=== PATIENT | male | born 1980 | race Caucasian/White ===

== ENCOUNTER 2024-05-20 11:56 | Observation (INO) | payer BC ==
[2024-05-20] MEDS ORDERED: Sodium Chloride 0.9% 1000 ML 1,000 ML ONE ×2 (12:24→13:12)
[2024-05-20] MEDS ORDERED: Zofran 4 MG/2 ML VIAL ONE (12:24)
[2024-05-20 12:25] LABS: Absolute Neutrophil Ct (ANC) 17.52 x10^3/uL (1.78-5.38); BASOPHIL % 0.3 % (0.2-1.2); Basophil (Absolute #) 0.06 x10^3/uL (0.01-0.08); Eosinophil % 0.1 % (0.8-7.0); Eosinophil (Absolute #) 0.01 x10^3/uL (0.04-0.54); Hematocrit 58.3 % (40.1-51.0); Hemoglobin 19.9 g/dL (13.7-17.5); IMMATURE GRAN # 0.07 x10^3u/L (0.001-0.031); IMMATURE GRAN % 0.4 % (0.001-0.429); Lymphocyte (Absolute #) 0.38 x10^3/uL (1.32-3.57); Mean Cell Volume 91.5 fL (79.0-92.2); Mean Corpuscular Hemoglobin 31.2 pg (25.7-32.2); Mean Corpuscular Hgb Concent. 34.1 g/dL (32.3-36.5); Mean Platelet Volume 9.5 fL (9.4-12.4); Monocyte (Absolute #) 0.73 x10^3/uL (0.30-0.82); Monocytes % 3.9 % (5.3-12.2); Neutrophil % 93.3 % (34.0-67.9); Platelet Count 290 x10^3/uL (163-337); Red Blood Count 6.37 x10^6/uL (4.63-6.08); Red Cell Distribution Width 13.5 % (11.6-14.4); White Blood Count 18.8 x10^3/uL (4.23-9.07)
[2024-05-20] MEDS: Zofran 4 MG/2 ML VIAL IV ONE (12:25)
[2024-05-20] MEDS: Sodium Chloride 0.9% 1000 ML 1,000 ML IV STA ×2 (12:25→13:13)
--- NOTE | 2024-05-20 12:34 | ERPHSYRPT ---
- History of Present Illness Time Seen by Provider: 05/20/24 12:20 Source: patient Exam Limitations: no limitations Patient Subjective Stated Complaint: PT states "[facility] and they think I might have dka and I went to lab and they could not get my blood because I am so dehydrated. I have vomited since 4 am." Triage Nursing Assessment: Pt presented alert and oriented X 3, skin pwd. Pt ambulates with an upright steady gait, able to speak in clear full sentences. PT resting comfortably on the bed. Timing/Duration: today Severity: mild Modifying Factors: Improves With: eating Associated Symptoms: nausea, vomiting Allergies/Adverse Reactions: No Known Drug Allergies Allergy (Verified 05/20/24 12:06) Home Medications: Empagliflozin [Jardiance] 25 mg PO DAILY 05/20/24 [History] Glimepiride 2 mg [Amaryl 2 MG] 2 mg PO DAILY 05/20/24 [History] Metformin HCl [Metformin HCl ER] 500 mg PO DAILY 05/20/24 [History] Hx Tetanus, Diphtheria Vaccination/Date Given: No Hx Influenza Vaccination/Date Given: No Hx Pneumococcal Vaccination/Date Given: No Immunizations Up to Date: No Travel Risk - International Travel Have you traveled outside of the country in past 3 weeks: No - Emerging Infectious Disease Are you exhibiting symptoms associated with any current EIDs: Yes Symptoms: Abdominal Pain, Vomitting - Review of Systems Eyes: No Symptoms Ears, Nose, & Throat: No Symptoms Respiratory: No Symptoms Cardiac: No Symptoms Abdominal/Gastrointestinal: Nausea, Vomiting Genitourinary Symptoms: No Symptoms Musculoskeletal: No Symptoms - Past Medical History Pertinent Past Medical History: Yes Neurological History: No Pertinent History ENT History: No Pertinent History Cardiac History: No Pertinent History, High Cholesterol Respiratory History: No Pertinent History Endocrine Medical History: Diabetes Type II Musculoskeletal History: No Pertinent History Other Medical History: nerve pain - Past Surgical History Past Surgical History: Yes Other Surgical History: colon resection - Social History Smoking Status: Former smoker Exposure to second hand smoke: No Drug Use: none - Social Determinants of Health Will the patient participate in the screening: Declined to provide - Nursing Vital Signs Nursing Vital Signs: Initial Vital Signs Temperature 95.5 F 05/20/24 12:01 Pulse Rate 107 H 05/20/24 12:01 Respiratory Rate 20 05/20/24 12:01 Blood Pressure 122/86 05/20/24 12:01 O2 Sat by Pulse Oximetry 98 05/20/24 12:01 Pain Scale Pain Intensity 0 - Physical Exam General Appearance: no apparent distress Eye Exam: PERRL/EOMI Ears, Nose, Throat Exam: normal ENT inspection Neck Exam: normal inspection Respiratory Exam: normal breath sounds Cardiovascular Exam: regular rate/rhythm Gastrointestinal/Abdomen Exam: soft, normal bowel sounds Neurologic Exam: alert, oriented x 3 Skin Exam: normal color SpO2 Interpretation: normal SpO2: 98 Ordered Tests: Active Orders 24 hr Category Date Time Status IV Insertion STAT Care 05/20/24 12:10 Active ABDOMEN AND PELVIS W CONTRAST [CT] Stat Exams 05/20/24 12:39 Completed AMYLASE Stat Lab 05/20/24 12:05 Completed CBC W DIFF Stat Lab 05/20/24 12:05 Completed CMP Stat Lab 05/20/24 12:05 Completed LIPASE Stat Lab 05/20/24 12:05 Completed Lactic Acid Stat Lab 05/20/24 12:26 Completed Lactic Acid Stat Lab 05/20/24 14:29 Completed UA W/RFX UR CULTURE Stat Lab 05/20/24 13:22 Completed Transfer Order Routine Transfer 05/20/24 Ordered Medication Summary Discontinued Medications Generic Name Dose Route Start Last Admin Trade Name Freq PRN Reason Stop Dose Admin Droperidol 0.625 mg 05/20/24 16:16 05/20/24 16:20 Droperidol 5 Mg/2 Ml Vial IV 05/20/24 16:17 0.625 mg 1XONLY ONE Administration Droperidol Confirm 05/20/24 16:19 Droperidol 5 Mg/2 Ml Vial Administered 05/20/24 16:20 Dose 5 mg .ROUTE .STK-MED ONE Sodium Chloride 1,000 mls @ 999 mls/hr 05/20/24 12:22 05/20/24 13:32 Sodium Chloride 0.9% 1000 Ml IV 05/20/24 13:22 Infused .Q1H1M STA Infusion Sodium Chloride 1,000 mls @ 999 mls/hr 05/20/24 12:23 05/20/24 14:51 Sodium Chloride 0.9% 1000 Ml IV 05/20/24 13:23 Infused .Q1H1M STA Infusion Sodium Chloride Confirm 05/20/24 12:24 Sodium Chloride 0.9% 1000 Ml Administered 05/20/24 12:25 Dose 1,000 mls @ ud .ROUTE .STK-MED ONE Sodium Chloride Confirm 05/20/24 13:12 Sodium Chloride 0.9% 1000 Ml Administered 05/20/24 13:13 Dose 1,000 mls @ ud .ROUTE .STK-MED ONE Ondansetron HCl 4 mg 05/20/24 12:23 05/20/24 12:25 Ondansetron Hcl 4 Mg/2 Ml Vial IV 05/20/24 12:24 4 mg STAT ONE Administration Ondansetron HCl Confirm 05/20/24 12:24 Ondansetron Hcl 4 Mg/2 Ml Vial Administered 05/20/24 12:25 Dose 4 mg .ROUTE .STK-MED ONE Lab/Rad Data: Laboratory Result Diagrams 05/20/24 12:05 05/20/24 12:05 Laboratory Results 05/20/24 05/20/24 05/20/24 Range/Units 14:29 13:22 12:26 WBC (4.23-9.07) x10^3/uL RBC (4.63-6.08) x10^6/uL Hgb (13.7-17.5) g/dL Hct (40.1-51.0) % MCV (79.0-92.2) fL MCH (25.7-32.2) pg MCHC (32.3-36.5) g/dL RDW (11.6-14.4) % Plt Count (163-337) x10^3/uL MPV (9.4-12.4) fL Gran % (34.0-67.9) % Immature Gran % (Auto) (0.001-0.429) % Nucleat RBC Rel Count (0.00-0.2) % Eos # (Auto) (0.04-0.54) x10^3/uL Immature Gran # (Auto) (0.001-0.031) x10^3u/L Absolute Lymphs (auto) (1.32-3.57) x10^3/uL Absolute Monos (auto) (0.30-0.82) x10^3/uL Absolute Nucleated RBC (0.00-0.012) x10^3u/L Lymphocytes % (21.8-53.1) % Monocytes % (5.3-12.2) % Eosinophils % (0.8-7.0) % Basophils % (0.2-1.2) % Absolute Granulocytes (1.78-5.38) x10^3/uL Basophils # (0.01-0.08) x10^3/uL Sodium (135-145) mmol/L Potassium (3.5-5.1) mmol/L Chloride (98-107) mmol/L Carbon Dioxide (22-30) mmol/L Anion Gap (5-15) MEQ/L BUN (9-20) mg/dL Creatinine (0.66-1.25) mg/dL Estimated GFR ML/MIN Glucose (74-106) mg/dL Lactic Acid 1.4 2.9 H (0.4-2.0) Calcium (8.4-10.2) mg/dL Total Bilirubin (0.2-1.3) mg/dL AST (17-59) U/L ALT (0-50) U/L Alkaline Phosphatase (38-126) U/L Serum Total Protein (6.3-8.2) g/dL Albumin (3.5-5.0) g/dL Amylase (30-110) U/L Lipase (23-300) U/L Urine Color Yellow (Yellow) Urine Appearance Clear (Clear) Urine pH 5.0 (4.6-8.0) Ur Specific [place] >=1.030 A (1.005-1.030) Urine Protein Negative (Negative) Urine Glucose (UA) >=1000 A (Negative) mg/dL Urine Ketones 15 A (Negative) Urine Blood Trace (Negative) Urine Nitrite Negative (Negative) Urine Bilirubin Negative (Negative) Urine Urobilinogen 0.2 (0.2) mg/dL Ur Leukocyte Esterase Negative (Negative) U Hyaline Cast (Auto) NONE SEEN (0-2) /LPF Urine Microscopic RBC 0-2 (0-5) /HPF Urine Microscopic WBC 0-2 (0-5) /HPF Ur Epithelial Cells None Seen (None Seen) /HPF Urine Bacteria None Seen (None Seen) /HPF Urine Culture Reflexed NO (NO) Influenza Type A Ag (NEGATIVE) Influenza Type B Ag (NEGATIVE) RSV (PCR) (NEGATIVE) SARS-CoV-2 (PCR) (NEGATIVE) Slides for Path Review 05/20/24 05/20/24 05/20/24 Range/Units 12:25 12:05 12:05 WBC 18.8 H (4.23-9.07) x10^3/uL RBC 6.37 H (4.63-6.08) x10^6/uL Hgb 19.9 H (13.7-17.5) g/dL Hct 58.3 H (40.1-51.0) % MCV 91.5 (79.0-92.2) fL MCH 31.2 (25.7-32.2) pg MCHC 34.1 (32.3-36.5) g/dL RDW 13.5 (11.6-14.4) % Plt Count 290 (163-337) x10^3/uL MPV 9.5 (9.4-12.4) fL Gran % 93.3 H (34.0-67.9) % Immature Gran % (Auto) 0.4 (0.001-0.429) % Nucleat RBC Rel Count 0.0 (0.00-0.2) % Eos # (Auto) 0.01 L (0.04-0.54) x10^3/uL Immature Gran # (Auto) 0.07 H (0.001-0.031) x10^3u/L Absolute Lymphs (auto) 0.38 L (1.32-3.57) x10^3/uL Absolute Monos (auto) 0.73 (0.30-0.82) x10^3/uL Absolute Nucleated RBC 0.00 (0.00-0.012) x10^3u/L Lymphocytes % 2.0 L (21.8-53.1) % Monocytes % 3.9 L (5.3-12.2) % Eosinophils % 0.1 L (0.8-7.0) % Basophils % 0.3 (0.2-1.2) % Absolute Granulocytes 17.52 H (1.78-5.38) x10^3/uL Basophils # 0.06 (0.01-0.08) x10^3/uL Sodium 139 (135-145) mmol/L Potassium 4.4 (3.5-5.1) mmol/L Chloride 100 (98-107) mmol/L Carbon Dioxide 26 (22-30) mmol/L Anion Gap 17.3 H (5-15) MEQ/L BUN 19 (9-20) mg/dL Creatinine 1.28 H (0.66-1.25) mg/dL Estimated GFR 72.1 ML/MIN Glucose 245 H (74-106) mg/dL Lactic Acid (0.4-2.0) Calcium 9.7 (8.4-10.2) mg/dL Total Bilirubin 1.60 H (0.2-1.3) mg/dL AST 37 (17-59) U/L ALT 73 H (0-50) U/L Alkaline Phosphatase 91 (38-126) U/L Serum Total Protein 8.5 H (6.3-8.2) g/dL Albumin 5.1 H (3.5-5.0) g/dL Amylase 86 (30-110) U/L Lipase 45 (23-300) U/L Urine Color (Yellow) Urine Appearance (Clear) Urine pH (4.6-8.0) Ur Specific [place] (1.005-1.030) Urine Protein (Negative) Urine Glucose (UA) (Negative) mg/dL Urine Ketones (Negative) Urine Blood (Negative) Urine Nitrite (Negative) Urine Bilirubin (Negative) Urine Urobilinogen (0.2) mg/dL Ur Leukocyte Esterase (Negative) U Hyaline Cast (Auto) (0-2) /LPF Urine Microscopic RBC (0-5) /HPF Urine Microscopic WBC (0-5) /HPF Ur Epithelial Cells (None Seen) /HPF Urine Bacteria (None Seen) /HPF Urine Culture Reflexed (NO) Influenza Type A Ag NEGATIVE (NEGATIVE) Influenza Type B Ag NEGATIVE (NEGATIVE) RSV (PCR) NEGATIVE (NEGATIVE) SARS-CoV-2 (PCR) NEGATIVE (NEGATIVE) Slides for Path Review YES - Progress Progress Note: 05/20/24 16:39Patient was seen and evaluated for abdominal pain nausea and vomiting labs and CT were obtained. Patient was updated with the results however he is still having nausea and does not want to go home he would prefer to be admitted. I spoke to the hospitalist will admit the patient he was updated with the patient's current labs and CT results Medical Desision Making - Discussion of managment Care discussed with:: hospitalist Reviewed:: Need for additional workup Agreed on:: decision to admit Will see patient: in hospital - Departure Departure Disposition: Observation Clinical Impression: Nausea & vomiting, Dehydration, Renal insufficiency, Diabetes Condition: Stable Critical Care Time: No Referrals: PIPER ARROYO MD [Primary Care Provider] - Follow up/PCP as directed
[2024-05-20 12:37] LABS: ALBUMIN 5.1 g/dL (3.5-5.0); ANION GAP 17.3 MEQ/L (5-15); BILIRUBIN,TOTAL 1.6 mg/dL (0.2-1.3); Calcium 9.7 mg/dL (8.4-10.2); Creatinine 1 1.28 mg/dL (0.66-1.25); EST GLOMERULAR FILTRATION RATE 72.1 ML/MIN; Potassium 4.4 mmol/L (3.5-5.1); Total Protein 8.5 g/dL (6.3-8.2)
[2024-05-20 13:03] LABS: INFLUENZA A NEGATIVE (NEGATIVE); INFLUENZA B NEGATIVE (NEGATIVE); RESPIRATORY SYNCTIAL VIRUS NEGATIVE (NEGATIVE); SARS-CoV-2 Xpert Express NEGATIVE (NEGATIVE)
[2024-05-20 14:03] LABS: Appearance Clear (Clear); Bacteria None Seen /HPF (None Seen); Bilirubin Negative (Negative); Blood Trace (Negative); Epithelial Cells None Seen /HPF (None Seen); Glucose, Urine >=1000 mg/dL (Negative); Hyaline Casts NONE SEEN /LPF (0-2); Ketones 15 (Negative); Leukocyte Esterase Negative (Negative); Nitrite Negative (Negative); Protein,Urine Dip Negative (Negative); RBC 0-2 /HPF (0-5); Specific Gravity >=1.030 (1.005-1.030); Urobilinogen 0.2 mg/dL (0.2); WBC 0-2 /HPF (0-5)
[2024-05-20 14:05] LABS: Slide Review 1 YES
--- NOTE | 2024-05-20 14:42 | XRAY ---
Indication: Pain. History diverticulitis. Multiple contiguous axial images obtained through the abdomen and pelvis using 80 cc Isovue 370 contrast. Comparison: None Lung bases demonstrates minimal dependent atelectasis and tiny right middle lobe calcified granulomas. No infiltrate or effusion. Heart not enlarged. Stomach is moderately distended with food/fluid. Noncontrasted stomach and bowel loops appear nonobstructed. Mild uniformly fluid distended small bowel loops with fluid leveling, ileus versus enteritis. Normal appendix. Mild diffuse scattered colonic fecal debris. Intact sigmoid anastomosis. Incidental diffuse fatty liver and 1 cm right mid renal cortical cyst. No free fluid/air. Remaining liver, gallbladder, pancreas, spleen, adrenal glands, kidneys, ureters, bladder, and aorta are unremarkable. No pathologic retroperitoneal lymphadenopathy. Osseous structures intact with minimal/mild degenerative changes throughout spine greatest at L5-S1. Impression: 1. Mild fluid distended small bowel loops with fluid leveling, ileus versus enteritis. 2. Mild diffuse colonic fecal stasis. 3. Chronic findings including fatty liver, right renal cyst, degenerative spondylosis, and old granulomatous disease.
[2024-05-20] MEDS ORDERED: TESTOSTERONE CYPIONATE 200 MG/ML IM SCH (17:30)
[2024-05-20] MEDS ORDERED: HUMALOG SQ PRN (17:30)
--- NOTE | 2024-05-20 17:33 | PCM.HP ---
History of Present Illness - Chief Complaint Chief Complaint: vomiting, dehydration Date: 05/20/24 History of Present Illness: is a 43 year old male with PMHX of hyperlipidemia, type II DM, diverticulitis, colon resection, and chronic obesity. Patient was seen in [facility] [place] care then sent to ER and evaluated for abdominal pain, nausea, and vomiting. Labs and CT were obtained. Pt gave the option to go home from ER and still having nausea and did not want to go home he would preferred to be admitted. Labs show MADELIN, and dehydration. 2 Liters NS gave IV in ER and IVF started at 100ml/hr. Nausea meds also provided. CT abd. pelvis shows Mild fluid distended small bowel loops with fluid leveling, ileus versus enteritis. Mild diffuse colonic fecal stasis.Chronic findings including fatty liver, right renal cyst, degenerative spondylosis, and old granulomatous disease. Pt states he had a BM in the ER prior to CT. Explained he is constipated and MIralax ordered. If abd pain does not improve by tomorrow will consult surgery as he has a significant hx and higher risk for ileus d/t his medical hx.. He denies any diarrhea. Since admission N/V/ has resolved. He has continued abd. pain 09/25. He denies CP and SOB. - Review of Systems Constitutional: No Fever, No Chills Eyes: No Symptoms Ears, Nose, & Throat: No Symptoms Respiratory: No Cough, No Short Of Breath Cardiac: No Chest Pain, No Edema, No Syncope Abdominal/Gastrointestinal: Abdominal Pain, Nausea, Vomiting, Constipation Genitourinary Symptoms: No Dysuria Musculoskeletal: No Back Pain, No Neck Pain Skin: No Rash Neurological: No Dizziness, No Focal Weakness, No Sensory Changes Psychological: No Symptoms Endocrine: No Symptoms Hematologic/Lymphatic: No Symptoms Immunological/Allergic: No Symptoms Medications & Allergies Home Medications: Home Medication List Aspirin EC 81 mg [Ecotrin 81 mg] 81 mg PO DAILY 05/20/24 [History Confirmed 05/20/24] Empagliflozin [Jardiance] 25 mg PO DAILY 05/20/24 [History Confirmed 05/20/24] Fenofibrate,Micronized 145 mg* [Tricor 145 MG] 145 mg PO HS 05/20/24 [History Confirmed 05/20/24] Gabapentin [Neurontin ] 600 mg PO TID PRN 05/20/24 [History Confirmed 05/20/24] Glimepiride 2 mg [Amaryl 2 MG] 4 mg PO BID 05/20/24 [History Confirmed 05/20/24] Metformin HCl [Metformin HCl ER] 1,000 mg PO BID 05/20/24 [History Confirmed 05/20/24] Omeprazole 40 mg PO DAILY 05/20/24 [History Confirmed 05/20/24] Testosterone Cypionate [Azmiro] 0.75 ml IM WEEKLY 05/20/24 [History Confirmed 05/20/24] Allergies/Adverse Reactions: Allergies Allergy/AdvReac Type Severity Reaction Status Date / Time No Known Drug Allergies Allergy Verified 05/20/24 12:06 - Past Medical History Past Medical History: Yes Neurological History: No Pertinent History ENT History: No Pertinent History Cardiac History: No Pertinent History, High Cholesterol Respiratory History: No Pertinent History Endocrine Medical History: Diabetes Type II Musculoskelatal History: No Pertinent History Comment: nerve pain - Past Surgical History Past Surgical History: Yes Other Surgical History: colon resection Significant Family History: no pertinent family hx - Social History Smoking Status: Former smoker Exposure to second hand smoke: No Alcohol: Occasionally Drug Use: none - Social Determinants of Health Will the patient participate in the screening: Declined to provide - Physical Exam Vital Signs: Vital Signs - 24 hr Temp Pulse Resp BP BP Pulse Ox 05/20/24 17:09 95.5 F 108 H 122/86 98 05/20/24 16:41 98 05/20/24 16:15 108 H 115/82 97 05/20/24 16:00 128/84 94 L 05/20/24 15:45 119/63 05/20/24 15:30 121/79 94 L 05/20/24 15:15 123/63 95 05/20/24 15:00 105 H 110/69 94 L 05/20/24 14:45 109/67 05/20/24 14:30 121/75 05/20/24 14:29 97 05/20/24 14:27 97 05/20/24 14:00 101/66 05/20/24 13:45 105 H 18 123/68 91 L 05/20/24 13:31 123/61 94 L 05/20/24 13:15 94/68 97 05/20/24 13:00 107 H 127/85 94 L 05/20/24 12:45 117/79 93 L 05/20/24 12:30 121/81 95 05/20/24 12:15 140/97 95 05/20/24 12:01 95.5 F 107 H 20 122/86 122/86 98 General Appearance: no apparent distress, alert Neurologic Exam: alert, oriented x 3, cooperative, normal mood/affect, nml cerebellar function, nml station & gait, sensation nml, No motor deficits Eye Exam: PERRL/EOMI, eyes nml inspection Ears, Nose, Throat Exam: normal ENT inspection, TMs normal, pharynx normal, moist mucous membranes Neck Exam: normal inspection, non-tender, supple, full range of motion Respiratory Exam: normal breath sounds, lungs clear, No respiratory distress Cardiovascular Exam: regular rate/rhythm, normal heart sounds, normal peripheral pulses Gastrointestinal/Abdomen Exam: soft, normal bowel sounds, No tenderness, No mass Back Exam: normal inspection, normal range of motion, No CVA tenderness, No vertebral tenderness Extremity Exam: normal inspection, normal range of motion, pelvis stable Skin Exam: normal color, warm, dry, No rash Lymphatic Exam: No adenopathy Results - Labs Lab/Micro Results: Lab Results-Last 24 Hours 05/20/24 05/20/24 05/20/24 Range/Units 12:05 12:05 12:25 WBC 18.8 H (4.23-9.07) x10^3/uL RBC 6.37 H (4.63-6.08) x10^6/uL Hgb 19.9 H (13.7-17.5) g/dL Hct 58.3 H (40.1-51.0) % MCV 91.5 (79.0-92.2) fL MCH 31.2 (25.7-32.2) pg MCHC 34.1 (32.3-36.5) g/dL RDW 13.5 (11.6-14.4) % Plt Count 290 (163-337) x10^3/uL MPV 9.5 (9.4-12.4) fL Gran % 93.3 H (34.0-67.9) % Immature Gran % (Auto) 0.4 (0.001-0.429) % Nucleat RBC Rel Count 0.0 (0.00-0.2) % Eos # (Auto) 0.01 L (0.04-0.54) x10^3/uL Immature Gran # (Auto) 0.07 H (0.001-0.031) x10^3u/L Absolute Lymphs (auto) 0.38 L (1.32-3.57) x10^3/uL Absolute Monos (auto) 0.73 (0.30-0.82) x10^3/uL Absolute Nucleated RBC 0.00 (0.00-0.012) x10^3u/L Lymphocytes % 2.0 L (21.8-53.1) % Monocytes % 3.9 L (5.3-12.2) % Eosinophils % 0.1 L (0.8-7.0) % Basophils % 0.3 (0.2-1.2) % Absolute Granulocytes 17.52 H (1.78-5.38) x10^3/uL Basophils # 0.06 (0.01-0.08) x10^3/uL Sodium 139 (135-145) mmol/L Potassium 4.4 (3.5-5.1) mmol/L Chloride 100 (98-107) mmol/L Carbon Dioxide 26 (22-30) mmol/L Anion Gap 17.3 H (5-15) MEQ/L BUN 19 (9-20) mg/dL Creatinine 1.28 H (0.66-1.25) mg/dL Estimated GFR 72.1 ML/MIN Glucose 245 H (74-106) mg/dL Lactic Acid (0.4-2.0) Calcium 9.7 (8.4-10.2) mg/dL Total Bilirubin 1.60 H (0.2-1.3) mg/dL AST 37 (17-59) U/L ALT 73 H (0-50) U/L Alkaline Phosphatase 91 (38-126) U/L Serum Total Protein 8.5 H (6.3-8.2) g/dL Albumin 5.1 H (3.5-5.0) g/dL Amylase 86 (30-110) U/L Lipase 45 (23-300) U/L Urine Color (Yellow) Urine Appearance (Clear) Urine pH (4.6-8.0) Ur Specific [place] (1.005-1.030) Urine Protein (Negative) Urine Glucose (UA) (Negative) mg/dL Urine Ketones (Negative) Urine Blood (Negative) Urine Nitrite (Negative) Urine Bilirubin (Negative) Urine Urobilinogen (0.2) mg/dL Ur Leukocyte Esterase (Negative) U Hyaline Cast (Auto) (0-2) /LPF Urine Microscopic RBC (0-5) /HPF Urine Microscopic WBC (0-5) /HPF Ur Epithelial Cells (None Seen) /HPF Urine Bacteria (None Seen) /HPF Urine Culture Reflexed (NO) Influenza Type A Ag NEGATIVE (NEGATIVE) Influenza Type B Ag NEGATIVE (NEGATIVE) RSV (PCR) NEGATIVE (NEGATIVE) SARS-CoV-2 (PCR) NEGATIVE (NEGATIVE) Slides for Path Review YES 05/20/24 05/20/24 05/20/24 Range/Units 12:26 13:22 14:29 WBC (4.23-9.07) x10^3/uL RBC (4.63-6.08) x10^6/uL Hgb (13.7-17.5) g/dL Hct (40.1-51.0) % MCV (79.0-92.2) fL MCH (25.7-32.2) pg MCHC (32.3-36.5) g/dL RDW (11.6-14.4) % Plt Count (163-337) x10^3/uL MPV (9.4-12.4) fL Gran % (34.0-67.9) % Immature Gran % (Auto) (0.001-0.429) % Nucleat RBC Rel Count (0.00-0.2) % Eos # (Auto) (0.04-0.54) x10^3/uL Immature Gran # (Auto) (0.001-0.031) x10^3u/L Absolute Lymphs (auto) (1.32-3.57) x10^3/uL Absolute Monos (auto) (0.30-0.82) x10^3/uL Absolute Nucleated RBC (0.00-0.012) x10^3u/L Lymphocytes % (21.8-53.1) % Monocytes % (5.3-12.2) % Eosinophils % (0.8-7.0) % Basophils % (0.2-1.2) % Absolute Granulocytes (1.78-5.38) x10^3/uL Basophils # (0.01-0.08) x10^3/uL Sodium (135-145) mmol/L Potassium (3.5-5.1) mmol/L Chloride (98-107) mmol/L Carbon Dioxide (22-30) mmol/L Anion Gap (5-15) MEQ/L BUN (9-20) mg/dL Creatinine (0.66-1.25) mg/dL Estimated GFR ML/MIN Glucose (74-106) mg/dL Lactic Acid 2.9 H 1.4 (0.4-2.0) Calcium (8.4-10.2) mg/dL Total Bilirubin (0.2-1.3) mg/dL AST (17-59) U/L ALT (0-50) U/L Alkaline Phosphatase (38-126) U/L Serum Total Protein (6.3-8.2) g/dL Albumin (3.5-5.0) g/dL Amylase (30-110) U/L Lipase (23-300) U/L Urine Color Yellow (Yellow) Urine Appearance Clear (Clear) Urine pH 5.0 (4.6-8.0) Ur Specific [place] >=1.030 A (1.005-1.030) Urine Protein Negative (Negative) Urine Glucose (UA) >=1000 A (Negative) mg/dL Urine Ketones 15 A (Negative) Urine Blood Trace (Negative) Urine Nitrite Negative (Negative) Urine Bilirubin Negative (Negative) Urine Urobilinogen 0.2 (0.2) mg/dL Ur Leukocyte Esterase Negative (Negative) U Hyaline Cast (Auto) NONE SEEN (0-2) /LPF Urine Microscopic RBC 0-2 (0-5) /HPF Urine Microscopic WBC 0-2 (0-5) /HPF Ur Epithelial Cells None Seen (None Seen) /HPF Urine Bacteria None Seen (None Seen) /HPF Urine Culture Reflexed NO (NO) Influenza Type A Ag (NEGATIVE) Influenza Type B Ag (NEGATIVE) RSV (PCR) (NEGATIVE) SARS-CoV-2 (PCR) (NEGATIVE) Slides for Path Review - Radiology Impressions Radiology Exams & Impressions: Radiology Procedures Category Date Time Status ABDOMEN AND PELVIS W CONTRAST [CT] Stat Exams 05/20/24 12:39 Completed Assessment/Plan (1) Abdominal pain Current Visit: Yes Status: Acute Assessment & Plan: - CT abd pelvis: 1. Mild fluid distended small bowel loops with fluid leveling, ileus versus enteritis. 2. Mild diffuse colonic fecal stasis. 3. Chronic findings including fatty liver, right renal cyst, degenerative spondylosis, and old granulomatous disease. - IVF - CBC, CMP reviewed - Tele - WBC 18.8 trend - Consider surgery consult - morphine for pain IV PRN - KUB in AM Code(s): R10.9 - UNSPECIFIED ABDOMINAL PAIN (2) MADELIN (acute kidney injury) Current Visit: Yes Status: Acute Assessment & Plan: - Creat 1.28- baseline normal- trend - CMP reviewed - IVF Code(s): N17.9 - ACUTE KIDNEY FAILURE, UNSPECIFIED (3) Constipation Current Visit: Yes Status: Acute Assessment & Plan: - Miralax - IVF Code(s): K59.00 - CONSTIPATION, UNSPECIFIED (4) Dehydration Current Visit: Yes Status: Acute Assessment & Plan: - Anion gap 17.3 - 2 L NS boluses gave in ER - NS @ 100ml/hr - trend labs Code(s): E86.0 - DEHYDRATION (5) Diabetes Current Visit: Yes Status: Chronic Assessment & Plan: - A1C pending - continue home meds - accuchecks ac/hs - low dose s/s insulin Code(s): E11.9 - TYPE 2 DIABETES MELLITUS WITHOUT COMPLICATIONS (6) Nausea & vomiting Current Visit: Yes Status: Acute Assessment & Plan: - zofran PRN - Clear liquid diet. - UDS Code(s): R11.2 - NAUSEA WITH VOMITING, UNSPECIFIED (7) Obesity (BMI 30.0-34.9) Current Visit: Yes Status: Chronic Assessment & Plan: - advised ADA diet and exercise control VTE: SCD's PPI: Protonix Next of KIN: Spouse Code status: Full D/C plan: 1-2 days Code(s): E66.811 - OBESITY, CLASS 1 Telemedicine Encounter - Telemedicine Encounter Telemedicine Encounter: "The entirety of this encounter was performed via Telemedicine" This visit was performed using real-time audio and video connection between my location and thepatients locationwith the assistance of a surrogateat the patients location. Written or verbal consent was obtained from the patient/guardian to perform this visit [email or web address]. Any patient questions regarding the telemedicine interaction were answered.
[2024-05-20] MEDS ORDERED: MORPHINE SULFATE 2 MG INJ IV PRN (18:05)
[2024-05-20] MEDS: Zofran 4 MG/2 ML VIAL IV PRN (18:17)
[2024-05-20] MEDS: Sodium Chloride 0.9% 1000 ML 1,000 ML IV SCH (18:17)
[2024-05-20] MEDS: Miralax Powder 17GM PACKET PO SCH (18:17)
[2024-05-20 21:36] LABS: Amphetamine,Urine NEGATIVE (NEGATIVE); Barbiturate,Urine NEGATIVE (NEGATIVE); Benzodiazepine,Urine NEGATIVE (NEGATIVE); Cocaine,Urine NEGATIVE (NEGATIVE); Methadone,Urine NEGATIVE (NEGATIVE); Opiate,Urine NEGATIVE (NEGATIVE); PCP,Urine NEGATIVE (NEGATIVE); THC,Urine NEGATIVE (NEGATIVE)
[2024-05-20] MEDS: Amaryl 2 MG PO SCH (21:45)
[2024-05-20] MEDS: NON-FORMULARY ITEM (Metformin Hcl 500 MG Tab.Er.24h) PO SCH (21:45)
[2024-05-20] MEDS: Tricor 145 MG PO SCH (21:45)
[2024-05-20] MEDS: TYLENOL EXTRA STRENGTH 500 MG PO PRN (21:55)
[2024-05-20] MEDS: NEURONTIN PO PRN (23:49)
[2024-05-21 05:08] LABS: Hemoglobin 16.3 g/dL (13.7-17.5); Mean Corpuscular Hemoglobin 31.2 pg (25.7-32.2); Mean Platelet Volume 9.8 fL (9.4-12.4); Platelet Count 229 x10^3/uL (163-337); Red Blood Count 5.22 x10^6/uL (4.63-6.08); White Blood Count 8.6 x10^3/uL (4.23-9.07)
[2024-05-21 05:29] LABS: ALBUMIN 3.8 g/dL (3.5-5.0); BILIRUBIN,TOTAL 1.2 mg/dL (0.2-1.3); Calcium 8.4 mg/dL (8.4-10.2); Creatinine 1 0.91 mg/dL (0.66-1.25); EST GLOMERULAR FILTRATION RATE 108.6 ML/MIN; Potassium 3.7 mmol/L (3.5-5.1); Total Protein 6.4 g/dL (6.3-8.2)
[2024-05-21] MEDS ORDERED: NEURONTIN PO PRN (07:05)
[2024-05-21] MEDS ORDERED: MEDICATION INTERVENTION MC SCH (07:15)
[2024-05-21 07:16] VITALS: RESP 17
[2024-05-21] MEDS: ECOTRIN 81 MG PO SCH (09:07)
[2024-05-21] MEDS: JARDIANCE PO SCH (09:07)
[2024-05-21] MEDS: Amaryl 2 MG PO SCH (09:07)
[2024-05-21] MEDS: Protonix 40MG Tablet PO SCH (09:08)
[2024-05-21] MEDS: Glucophage XR 500 MG PO SCH (09:10)
[2024-05-21] MEDS ORDERED: Protonix 20MG Tablet PO SCH (10:00)
--- NOTE | 2024-05-21 10:19 | PCM.DS ---
Discharge Summary Date of Admission: 05/20/24 17:00 Date of Discharge: 05/21/24 Admitting Physician: EMMANUEL BUSTOS MD Primary Care Provider: PIPER ARROYO Allergies Allergies No Known Drug Allergies Allergy (Verified 05/21/24 12:06) Hospital Summary - Hospital Course Hospital Course: 05/20/24 is a 43 year old male with PMHX of hyperlipidemia, type II DM, diverticulitis, colon resection, and chronic obesity. Patient was seen in [facility] care then sent to ER and evaluated for abdominal pain, nausea, and vomiting. Labs and CT were obtained. Pt gave the option to go home from ER and still having nausea and did not want to go home he would preferred to be admitted. Labs show MADELIN, and dehydration. 2 Liters NS gave IV in ER and IVF started at 100ml/hr. Nausea meds also provided. CT abd. pelvis shows Mild fluid distended small bowel loops with fluid leveling, ileus versus enteritis. Mild diffuse colonic fecal stasis.Chronic findings including fatty liver, right renal cyst, degenerative spondylosis, and old granulomatous disease. Pt states he had a BM in the ER prior to CT. Explained he is constipated and MIralax ordered. If abd pain does not improve by tomorrow will consult surgery as he has a significant hx and higher risk for ileus d/t his medical hx.. He denies any diarrhea. Since admission N/V/ has resolved. He has continued abd. pain 09/25. He denies CP and SOB. 05/21/24 Pt sitting up in bed. He reports he is feeling much better and had 2 BM's this AM. No overnight vomiting. Abd pain resolved. KUB shows mild air distended small bowel loops, ileus versus enteritis. Surgery consulted and explained if pt feels ok he can d/c if pt does not want to wait. He denies any further concerns at this time and would like to go home. He denies CP, SOB, abd. pain, N/V/D. - Vitals & Intake/Output Vital Signs: Vital Signs Temperature 97.8 F 05/21/24 07:00 Pulse Rate 71 05/21/24 07:00 Respiratory Rate 17 05/21/24 07:00 Blood Pressure 93/50 05/21/24 07:00 O2 Sat by Pulse Oximetry 96 05/21/24 07:00 Intake & Output: Intake & Output 05/18/24 05/19/24 05/20/24 05/21/24 11:59 11:59 11:59 11:59 Intake Total 655 Output Total 1400 Balance -745 Weight 120.1 kg - Lab Result Diagrams: 05/21/24 04:13 05/21/24 04:13 Lab Results-Last 24 Hrs: Lab Results-Last 24 Hours 05/20/24 05/20/24 05/20/24 Range/Units 12:05 12:05 12:05 WBC 18.8 H (4.23-9.07) x10^3/uL RBC 6.37 H (4.63-6.08) x10^6/uL Hgb 19.9 H (13.7-17.5) g/dL Hct 58.3 H (40.1-51.0) % MCV 91.5 (79.0-92.2) fL MCH 31.2 (25.7-32.2) pg MCHC 34.1 (32.3-36.5) g/dL RDW 13.5 (11.6-14.4) % Plt Count 290 (163-337) x10^3/uL MPV 9.5 (9.4-12.4) fL Gran % 93.3 H (34.0-67.9) % Immature Gran % (Auto) 0.4 (0.001-0.429) % Nucleat RBC Rel Count 0.0 (0.00-0.2) % Eos # (Auto) 0.01 L (0.04-0.54) x10^3/uL Immature Gran # (Auto) 0.07 H (0.001-0.031) x10^3u/L Absolute Lymphs (auto) 0.38 L (1.32-3.57) x10^3/uL Absolute Monos (auto) 0.73 (0.30-0.82) x10^3/uL Absolute Nucleated RBC 0.00 (0.00-0.012) x10^3u/L Lymphocytes % 2.0 L (21.8-53.1) % Monocytes % 3.9 L (5.3-12.2) % Eosinophils % 0.1 L (0.8-7.0) % Basophils % 0.3 (0.2-1.2) % Absolute Granulocytes 17.52 H (1.78-5.38) x10^3/uL Basophils # 0.06 (0.01-0.08) x10^3/uL Sodium 139 (135-145) mmol/L Potassium 4.4 (3.5-5.1) mmol/L Chloride 100 (98-107) mmol/L Carbon Dioxide 26 (22-30) mmol/L Anion Gap 17.3 H (5-15) MEQ/L BUN 19 (9-20) mg/dL Creatinine 1.28 H (0.66-1.25) mg/dL Estimated GFR 72.1 ML/MIN Glucose 245 H (74-106) mg/dL POC Glucometer (74 to 106) mg/dL Hemoglobin A1c 6.02 H (4.5-6.0) % Lactic Acid (0.4-2.0) Calcium 9.7 (8.4-10.2) mg/dL Total Bilirubin 1.60 H (0.2-1.3) mg/dL AST 37 (17-59) U/L ALT 73 H (0-50) U/L Alkaline Phosphatase 91 (38-126) U/L Serum Total Protein 8.5 H (6.3-8.2) g/dL Albumin 5.1 H (3.5-5.0) g/dL Amylase 86 (30-110) U/L Lipase 45 (23-300) U/L Urine Color (Yellow) Urine Appearance (Clear) Urine pH (4.6-8.0) Ur Specific Simpson (1.005-1.030) Urine Protein (Negative) Urine Glucose (UA) (Negative) mg/dL Urine Ketones (Negative) Urine Blood (Negative) Urine Nitrite (Negative) Urine Bilirubin (Negative) Urine Urobilinogen (0.2) mg/dL Ur Leukocyte Esterase (Negative) U Hyaline Cast (Auto) (0-2) /LPF Urine Microscopic RBC (0-5) /HPF Urine Microscopic WBC (0-5) /HPF Ur Epithelial Cells (None Seen) /HPF Urine Bacteria (None Seen) /HPF Urine Culture Reflexed (NO) Urine Opiates Level (NEGATIVE) Ur Methadone (NEGATIVE) Urine Barbiturates (NEGATIVE) Ur Phencyclidine (PCP) (NEGATIVE) Urine Amphetamine (NEGATIVE) U Benzodiazepine Level (NEGATIVE) Urine Cocaine (NEGATIVE) Urine Marijuana (THC) (NEGATIVE) Influenza Type A Ag (NEGATIVE) Influenza Type B Ag (NEGATIVE) RSV (PCR) (NEGATIVE) SARS-CoV-2 (PCR) (NEGATIVE) Slides for Path Review YES 05/20/24 05/20/24 05/20/24 Range/Units 12:25 12:26 13:22 WBC (4.23-9.07) x10^3/uL RBC (4.63-6.08) x10^6/uL Hgb (13.7-17.5) g/dL Hct (40.1-51.0) % MCV (79.0-92.2) fL MCH (25.7-32.2) pg MCHC (32.3-36.5) g/dL RDW (11.6-14.4) % Plt Count (163-337) x10^3/uL MPV (9.4-12.4) fL Gran % (34.0-67.9) % Immature Gran % (Auto) (0.001-0.429) % Nucleat RBC Rel Count (0.00-0.2) % Eos # (Auto) (0.04-0.54) x10^3/uL Immature Gran # (Auto) (0.001-0.031) x10^3u/L Absolute Lymphs (auto) (1.32-3.57) x10^3/uL Absolute Monos (auto) (0.30-0.82) x10^3/uL Absolute Nucleated RBC (0.00-0.012) x10^3u/L Lymphocytes % (21.8-53.1) % Monocytes % (5.3-12.2) % Eosinophils % (0.8-7.0) % Basophils % (0.2-1.2) % Absolute Granulocytes (1.78-5.38) x10^3/uL Basophils # (0.01-0.08) x10^3/uL Sodium (135-145) mmol/L Potassium (3.5-5.1) mmol/L Chloride (98-107) mmol/L Carbon Dioxide (22-30) mmol/L Anion Gap (5-15) MEQ/L BUN (9-20) mg/dL Creatinine (0.66-1.25) mg/dL Estimated GFR ML/MIN Glucose (74-106) mg/dL POC Glucometer (74 to 106) mg/dL Hemoglobin A1c (4.5-6.0) % Lactic Acid 2.9 H (0.4-2.0) Calcium (8.4-10.2) mg/dL Total Bilirubin (0.2-1.3) mg/dL AST (17-59) U/L ALT (0-50) U/L Alkaline Phosphatase (38-126) U/L Serum Total Protein (6.3-8.2) g/dL Albumin (3.5-5.0) g/dL Amylase (30-110) U/L Lipase (23-300) U/L Urine Color Yellow (Yellow) Urine Appearance Clear (Clear) Urine pH 5.0 (4.6-8.0) Ur Specific Simpson >=1.030 A (1.005-1.030) Urine Protein Negative (Negative) Urine Glucose (UA) >=1000 A (Negative) mg/dL Urine Ketones 15 A (Negative) Urine Blood Trace (Negative) Urine Nitrite Negative (Negative) Urine Bilirubin Negative (Negative) Urine Urobilinogen 0.2 (0.2) mg/dL Ur Leukocyte Esterase Negative (Negative) U Hyaline Cast (Auto) NONE SEEN (0-2) /LPF Urine Microscopic RBC 0-2 (0-5) /HPF Urine Microscopic WBC 0-2 (0-5) /HPF Ur Epithelial Cells None Seen (None Seen) /HPF Urine Bacteria None Seen (None Seen) /HPF Urine Culture Reflexed NO (NO) Urine Opiates Level (NEGATIVE) Ur Methadone (NEGATIVE) Urine Barbiturates (NEGATIVE) Ur Phencyclidine (PCP) (NEGATIVE) Urine Amphetamine (NEGATIVE) U Benzodiazepine Level (NEGATIVE) Urine Cocaine (NEGATIVE) Urine Marijuana (THC) (NEGATIVE) Influenza Type A Ag NEGATIVE (NEGATIVE) Influenza Type B Ag NEGATIVE (NEGATIVE) RSV (PCR) NEGATIVE (NEGATIVE) SARS-CoV-2 (PCR) NEGATIVE (NEGATIVE) Slides for Path Review 05/20/24 05/20/24 05/20/24 Range/Units 14:29 17:35 21:10 WBC (4.23-9.07) x10^3/uL RBC (4.63-6.08) x10^6/uL Hgb (13.7-17.5) g/dL Hct (40.1-51.0) % MCV (79.0-92.2) fL MCH (25.7-32.2) pg MCHC (32.3-36.5) g/dL RDW (11.6-14.4) % Plt Count (163-337) x10^3/uL MPV (9.4-12.4) fL Gran % (34.0-67.9) % Immature Gran % (Auto) (0.001-0.429) % Nucleat RBC Rel Count (0.00-0.2) % Eos # (Auto) (0.04-0.54) x10^3/uL Immature Gran # (Auto) (0.001-0.031) x10^3u/L Absolute Lymphs (auto) (1.32-3.57) x10^3/uL Absolute Monos (auto) (0.30-0.82) x10^3/uL Absolute Nucleated RBC (0.00-0.012) x10^3u/L Lymphocytes % (21.8-53.1) % Monocytes % (5.3-12.2) % Eosinophils % (0.8-7.0) % Basophils % (0.2-1.2) % Absolute Granulocytes (1.78-5.38) x10^3/uL Basophils # (0.01-0.08) x10^3/uL Sodium (135-145) mmol/L Potassium (3.5-5.1) mmol/L Chloride (98-107) mmol/L Carbon Dioxide (22-30) mmol/L Anion Gap (5-15) MEQ/L BUN (9-20) mg/dL Creatinine (0.66-1.25) mg/dL Estimated GFR ML/MIN Glucose (74-106) mg/dL POC Glucometer 124 H (74 to 106) mg/dL Hemoglobin A1c (4.5-6.0) % Lactic Acid 1.4 (0.4-2.0) Calcium (8.4-10.2) mg/dL Total Bilirubin (0.2-1.3) mg/dL AST (17-59) U/L ALT (0-50) U/L Alkaline Phosphatase (38-126) U/L Serum Total Protein (6.3-8.2) g/dL Albumin (3.5-5.0) g/dL Amylase (30-110) U/L Lipase (23-300) U/L Urine Color (Yellow) Urine Appearance (Clear) Urine pH (4.6-8.0) Ur Specific Simpson (1.005-1.030) Urine Protein (Negative) Urine Glucose (UA) (Negative) mg/dL Urine Ketones (Negative) Urine Blood (Negative) Urine Nitrite (Negative) Urine Bilirubin (Negative) Urine Urobilinogen (0.2) mg/dL Ur Leukocyte Esterase (Negative) U Hyaline Cast (Auto) (0-2) /LPF Urine Microscopic RBC (0-5) /HPF Urine Microscopic WBC (0-5) /HPF Ur Epithelial Cells (None Seen) /HPF Urine Bacteria (None Seen) /HPF Urine Culture Reflexed (NO) Urine Opiates Level NEGATIVE (NEGATIVE) Ur Methadone NEGATIVE (NEGATIVE) Urine Barbiturates NEGATIVE (NEGATIVE) Ur Phencyclidine (PCP) NEGATIVE (NEGATIVE) Urine Amphetamine NEGATIVE (NEGATIVE) U Benzodiazepine Level NEGATIVE (NEGATIVE) Urine Cocaine NEGATIVE (NEGATIVE) Urine Marijuana (THC) NEGATIVE (NEGATIVE) Influenza Type A Ag (NEGATIVE) Influenza Type B Ag (NEGATIVE) RSV (PCR) (NEGATIVE) SARS-CoV-2 (PCR) (NEGATIVE) Slides for Path Review 05/20/24 05/21/24 05/21/24 Range/Units 22:16 04:13 04:13 WBC 8.6 (4.23-9.07) x10^3/uL RBC 5.22 (4.63-6.08) x10^6/uL Hgb 16.3 (13.7-17.5) g/dL Hct 48.0 (40.1-51.0) % MCV 92.0 (79.0-92.2) fL MCH 31.2 (25.7-32.2) pg MCHC 34.0 (32.3-36.5) g/dL RDW 14.0 (11.6-14.4) % Plt Count 229 (163-337) x10^3/uL MPV 9.8 (9.4-12.4) fL Gran % (34.0-67.9) % Immature Gran % (Auto) (0.001-0.429) % Nucleat RBC Rel Count (0.00-0.2) % Eos # (Auto) (0.04-0.54) x10^3/uL Immature Gran # (Auto) (0.001-0.031) x10^3u/L Absolute Lymphs (auto) (1.32-3.57) x10^3/uL Absolute Monos (auto) (0.30-0.82) x10^3/uL Absolute Nucleated RBC (0.00-0.012) x10^3u/L Lymphocytes % (21.8-53.1) % Monocytes % (5.3-12.2) % Eosinophils % (0.8-7.0) % Basophils % (0.2-1.2) % Absolute Granulocytes (1.78-5.38) x10^3/uL Basophils # (0.01-0.08) x10^3/uL Sodium 135 (135-145) mmol/L Potassium 3.7 (3.5-5.1) mmol/L Chloride 102 (98-107) mmol/L Carbon Dioxide 25 (22-30) mmol/L Anion Gap 12.0 (5-15) MEQ/L BUN 13 (9-20) mg/dL Creatinine 0.91 (0.66-1.25) mg/dL Estimated GFR 108.6 ML/MIN Glucose 136 H (74-106) mg/dL POC Glucometer 115 H (74 to 106) mg/dL Hemoglobin A1c (4.5-6.0) % Lactic Acid (0.4-2.0) Calcium 8.4 (8.4-10.2) mg/dL Total Bilirubin 1.20 (0.2-1.3) mg/dL AST 36 (17-59) U/L ALT 54 H (0-50) U/L Alkaline Phosphatase 57 (38-126) U/L Serum Total Protein 6.4 (6.3-8.2) g/dL Albumin 3.8 (3.5-5.0) g/dL Amylase (30-110) U/L Lipase (23-300) U/L Urine Color (Yellow) Urine Appearance (Clear) Urine pH (4.6-8.0) Ur Specific Simpson (1.005-1.030) Urine Protein (Negative) Urine Glucose (UA) (Negative) mg/dL Urine Ketones (Negative) Urine Blood (Negative) Urine Nitrite (Negative) Urine Bilirubin (Negative) Urine Urobilinogen (0.2) mg/dL Ur Leukocyte Esterase (Negative) U Hyaline Cast (Auto) (0-2) /LPF Urine Microscopic RBC (0-5) /HPF Urine Microscopic WBC (0-5) /HPF Ur Epithelial Cells (None Seen) /HPF Urine Bacteria (None Seen) /HPF Urine Culture Reflexed (NO) Urine Opiates Level (NEGATIVE) Ur Methadone (NEGATIVE) Urine Barbiturates (NEGATIVE) Ur Phencyclidine (PCP) (NEGATIVE) Urine Amphetamine (NEGATIVE) U Benzodiazepine Level (NEGATIVE) Urine Cocaine (NEGATIVE) Urine Marijuana (THC) (NEGATIVE) Influenza Type A Ag (NEGATIVE) Influenza Type B Ag (NEGATIVE) RSV (PCR) (NEGATIVE) SARS-CoV-2 (PCR) (NEGATIVE) Slides for Path Review 05/21/24 Range/Units 07:08 WBC (4.23-9.07) x10^3/uL RBC (4.63-6.08) x10^6/uL Hgb (13.7-17.5) g/dL Hct (40.1-51.0) % MCV (79.0-92.2) fL MCH (25.7-32.2) pg MCHC (32.3-36.5) g/dL RDW (11.6-14.4) % Plt Count (163-337) x10^3/uL MPV (9.4-12.4) fL Gran % (34.0-67.9) % Immature Gran % (Auto) (0.001-0.429) % Nucleat RBC Rel Count (0.00-0.2) % Eos # (Auto) (0.04-0.54) x10^3/uL Immature Gran # (Auto) (0.001-0.031) x10^3u/L Absolute Lymphs (auto) (1.32-3.57) x10^3/uL Absolute Monos (auto) (0.30-0.82) x10^3/uL Absolute Nucleated RBC (0.00-0.012) x10^3u/L Lymphocytes % (21.8-53.1) % Monocytes % (5.3-12.2) % Eosinophils % (0.8-7.0) % Basophils % (0.2-1.2) % Absolute Granulocytes (1.78-5.38) x10^3/uL Basophils # (0.01-0.08) x10^3/uL Sodium (135-145) mmol/L Potassium (3.5-5.1) mmol/L Chloride (98-107) mmol/L Carbon Dioxide (22-30) mmol/L Anion Gap (5-15) MEQ/L BUN (9-20) mg/dL Creatinine (0.66-1.25) mg/dL Estimated GFR ML/MIN Glucose (74-106) mg/dL POC Glucometer 173 H (74 to 106) mg/dL Hemoglobin A1c (4.5-6.0) % Lactic Acid (0.4-2.0) Calcium (8.4-10.2) mg/dL Total Bilirubin (0.2-1.3) mg/dL AST (17-59) U/L ALT (0-50) U/L Alkaline Phosphatase (38-126) U/L Serum Total Protein (6.3-8.2) g/dL Albumin (3.5-5.0) g/dL Amylase (30-110) U/L Lipase (23-300) U/L Urine Color (Yellow) Urine Appearance (Clear) Urine pH (4.6-8.0) Ur Specific Simpson (1.005-1.030) Urine Protein (Negative) Urine Glucose (UA) (Negative) mg/dL Urine Ketones (Negative) Urine Blood (Negative) Urine Nitrite (Negative) Urine Bilirubin (Negative) Urine Urobilinogen (0.2) mg/dL Ur Leukocyte Esterase (Negative) U Hyaline Cast (Auto) (0-2) /LPF Urine Microscopic RBC (0-5) /HPF Urine Microscopic WBC (0-5) /HPF Ur Epithelial Cells (None Seen) /HPF Urine Bacteria (None Seen) /HPF Urine Culture Reflexed (NO) Urine Opiates Level (NEGATIVE) Ur Methadone (NEGATIVE) Urine Barbiturates (NEGATIVE) Ur Phencyclidine (PCP) (NEGATIVE) Urine Amphetamine (NEGATIVE) U Benzodiazepine Level (NEGATIVE) Urine Cocaine (NEGATIVE) Urine Marijuana (THC) (NEGATIVE) Influenza Type A Ag (NEGATIVE) Influenza Type B Ag (NEGATIVE) RSV (PCR) (NEGATIVE) SARS-CoV-2 (PCR) (NEGATIVE) Slides for Path Review Micro Results-Entire Visit: Accuchecks Date 05/21/24 Date 05/20/24 Time 07:16 Time 22:00 - Radiology Exams Ordered Rad Exams-Entire Visit: Radiology Procedures Category Date Time Status ABDOMEN AND PELVIS W CONTRAST [CT] Stat Exams 05/20/24 12:39 Completed KUB Routine Exams 05/21/24 10:00 Ordered Discharge Exam General Appearance: no apparent distress, alert Neurologic Exam: alert, oriented x 3, cooperative, normal mood/affect, nml cerebellar function, sensation nml, No motor deficits Eye Exam: PERRL, EOMI, eyes nml inspection Ears, Nose, Throat Exam: normal ENT inspection, pharynx normal, moist mucous membranes Neck Exam: normal inspection, non-tender, supple, full range of motion Respiratory Exam: normal breath sounds, lungs clear, No respiratory distress Cardiovascular Exam: regular rate/rhythm, normal heart sounds Gastrointestinal/Abdomen Exam: soft, No tenderness, No mass Male Genitalia Exam: deferred Rectal Exam: deferred Back Exam: normal inspection, normal range of motion, No CVA tenderness, No vertebral tenderness Extremity Exam: normal inspection, normal range of motion Skin Exam: normal color, warm, dry Final Diagnosis/Problem List - Final Discharge Diagnosis/Problem (1) Abdominal pain Current Visit: Yes Status: Acute Code(s): R10.9 - UNSPECIFIED ABDOMINAL PAIN (2) MADELIN (acute kidney injury) Current Visit: Yes Status: Acute Code(s): N17.9 - ACUTE KIDNEY FAILURE, UNSPECIFIED (3) Constipation Current Visit: Yes Status: Acute Code(s): K59.00 - CONSTIPATION, UNSPECIFIED (4) Dehydration Current Visit: Yes Status: Acute Code(s): E86.0 - DEHYDRATION (5) Diabetes Current Visit: Yes Status: Chronic Code(s): E11.9 - TYPE 2 DIABETES MELLITUS WITHOUT COMPLICATIONS (6) Nausea & vomiting Current Visit: Yes Status: Acute Code(s): R11.2 - NAUSEA WITH VOMITING, UNSPECIFIED (7) Obesity (BMI 30.0-34.9) Current Visit: Yes Status: Chronic Assessment & Plan: (1) Abdominal pain Current Visit: Yes Status: Acute Assessment & Plan: - CT abd pelvis: 1. Mild fluid distended small bowel loops with fluid leveling, ileus versus enteritis. 2. Mild diffuse colonic fecal stasis. 3. Chronic findings including fatty liver, right renal cyst, degenerative spondylosis, and old granulomatous disease. - IVF - CBC, CMP reviewed - Tele - WBC 18.8 trend - Consider surgery consult - morphine for pain IV PRN - KUB in AM 05/21/24 - KUB: mild air distended small bowel loops, ileus versus enteritis - surgery consulted- pt chose to d/c - CBC, CMP reviewed Code(s): R10.9 - UNSPECIFIED ABDOMINAL PAIN (2) MADELIN (acute kidney injury) Current Visit: Yes Status: Acute Assessment & Plan: - Creat 1.28- baseline normal- trend - CMP reviewed - IVF 05/21 - resolved Code(s): N17.9 - ACUTE KIDNEY FAILURE, UNSPECIFIED (3) Constipation Current Visit: Yes Status: Acute Assessment & Plan: - Miralax - IVF 05/21/24 - 2 BM's today - resolved Code(s): K59.00 - CONSTIPATION, UNSPECIFIED (4) Dehydration Current Visit: Yes Status: Acute Assessment & Plan: - Anion gap 17.3 - 2 L NS boluses gave in ER - NS @ 100ml/hr - trend labs 05/21 - resolved Code(s): E86.0 - DEHYDRATION (5) Diabetes Current Visit: Yes Status: Chronic Assessment & Plan: - A1C 6.02- controlled - continue home meds - accuchecks ac/hs - low dose s/s insulin Code(s): E11.9 - TYPE 2 DIABETES MELLITUS WITHOUT COMPLICATIONS (6) Nausea & vomiting Current Visit: Yes Status: Acute Assessment & Plan: - zofran PRN - Clear liquid diet. - UDS- negative - Flu/COVID/RSV negative Code(s): R11.2 - NAUSEA WITH VOMITING, UNSPECIFIED (7) Obesity (BMI 30.0-34.9) Current Visit: Yes Status: Chronic Assessment & Plan: - advised ADA diet and exercise control Code(s): E66.811 - OBESITY, CLASS 1 - Discharge Discharge Date: 05/21/24 Disposition: Home, Self-Care Condition: Stable Prescriptions: Continue Empagliflozin [Jardiance] 25 mg PO DAILY Metformin HCl [Metformin HCl ER] 1,000 mg PO BID Glimepiride 2 mg [Amaryl 2 MG] 4 mg PO BID Testosterone Cypionate [Azmiro] 0.75 ml IM WEEKLY Omeprazole 40 mg PO DAILY Aspirin EC 81 mg [Ecotrin 81 mg] 81 mg PO DAILY Fenofibrate,Micronized 145 mg* [Tricor 145 MG] 145 mg PO HS Gabapentin [Neurontin ] 600 mg PO TID PRN PRN Reason: NERVE PAIN Additional Instructions: Please follow up with PCP and come back for any concerning symptoms. Follow up with: PIPER ARROYO MD [Primary Care Provider] - 05/28/24 11:00 am
--- NOTE | 2024-05-21 10:35 | XRAY ---
Indication: Abdominal pain. Ileus. Comparison: CT abdomen/pelvis one day earlier. KUB demonstrates mild air distended small bowel loops, ileus versus enteritis. No focal bowel dilatation, obstruction, or free air. Solid organs and osseous structures unremarkable.
[2024-05-21 12:00] VITALS: BP 98/55; PULSE 72; TEMP 97.3; O2SAT 98
== END 2024-05-21 14:10 | disposition home or self-care (01) ==
LOC: ED 11:56 → MED SURG 17:00
PROVIDERS: ADMIT Internal Medicine; ATTEND Internal Medicine
DX: R10.9 Unspecified abdominal pain (principal); N17.9 Acute kidney failure, unspecified; K59.00 Constipation, unspecified; E86.0 Dehydration; E11.9 Type 2 diabetes mellitus without complications; R11.2 Nausea with vomiting, unspecified; E66.811 Obesity, class 1; E78.5 Hyperlipidemia, unspecified; Z79.899 Other long term (current) drug therapy
CPT/HCPCS: 0241U; 36415; 74018; 74177; 80053; 80307; 81001; 82150; 82947; 83036; 83605; 83690; 85025; 85027; 96360; 96361; 96374; 96375; 99285; Q3014; 93268; G0378; J2405; A9270-GY

== ENCOUNTER 2024-05-31 09:56 | Day surgery (SDC) | payer BC ==
[2024-05-31 10:11] VITALS: PULSE 66; RESP 18; TEMP 97.5
[2024-05-31] MEDS ORDERED: Versed 2 MG/2 ML Injection ONE (10:47)
[2024-05-31] MEDS ORDERED: propofoL IV ONE ×2 (10:47→10:55)
[2024-05-31 11:34] VITALS: O2SAT 95
[2024-05-31 11:44] VITALS: BP 122/75
--- NOTE | 2024-06-03 16:53 | OP ---
SURGERY DATE/TIME: 05/31/2024 [id number] PREOPERATIVE DIAGNOSIS: History of diverticulosis, presents for surveillance. POSTOPERATIVE DIAGNOSES: 1) Patent colorectal anastomosis at approximately 18 cm. 2) Mild external hemorrhoidal disease. 3) Trace diverticulosis. PROCEDURE: Colonoscopy. SURGEON: Debbie Aggarwal MD INDICATIONS: This is a gentleman who presents for colonoscopy. He has a history of diverticulitis and also presents for surveillance. He has had a resection of the sigmoid colon. He is currently asymptomatic with no pain and no lower GI symptoms. He tolerated his prep well and has appropriate yellow-tinged stool. I saw him immediately before his procedure as well. His H and P and consent have been completed. All questions have been answered to his satisfaction. He understands the procedure, the risks, the benefits and the alternatives and he wants to proceed. DESCRIPTION OF PROCEDURE AND FINDINGS: He was then brought back to the endoscopy suite. He was laid in the left lateral decubitus position. A complete time-out was performed. First, a rectal exam was done and mild external hemorrhoids were noted. No surgical intervention for these is recommendation. The scope was then inserted and gently advanced easily to the level of the cecum. Overall, the prep was good. He did have a small amount of stool that I irrigated throughout the colon. In the cecum, appendiceal orifice and the ileocecal valve were visualized. I then carefully withdrew the scope, taking a circumferential look at the mucosa. Overall, the mucosa appeared very healthy. At approximately 18 cm, we noted an end-to-side appearing anastomosis. This was widely patent. This appeared to be very health. I did not see any diverticula distal to this anastomosis. Proximally, there was 1 small diverticula noted in the distal aspect at approximately 20 cm. Other than that, the remainder of the colon and rectum appeared to be normal and then the scope was fully removed. The patient tolerated the procedure very well. There were no immediate complications. We will discuss his history and then together plan an appropriate screening interval, as well as discuss the importance of following up sooner should her have any lower GI symptoms that need to be evaluated.
== END 2024-05-31 11:44 | disposition home or self-care (01) ==
LOC: SDC 09:56
PROVIDERS: ATTEND Surgery
DX: Z12.11 Encounter for screening for malignant neoplasm of colon (principal); Z87.19 Personal history of other diseases of the digestive system; E11.9 Type 2 diabetes mellitus without complications; K64.4 Residual hemorrhoidal skin tags; K57.30 Diverticulosis of large intestine without perforation or abscess without bleeding
CPT/HCPCS: 82947; J2250; J2704